=== PATIENT | female | born 1985 | race Caucasian/White ===

== ENCOUNTER 2018-07-18 18:35 | Emergency (ER) | payer MEDICAID ==
[~2018-07-18] VITALS: Ht 157.5 cm; Wt 65.8 kg
[2018-07-18 18:39] VITALS: Ht 157.5 cm; Wt 65.8 kg
[2018-07-18] MEDS ORDERED: KETOROLAC 60 MG INJ IM STA (21:03)
[2018-07-18] MEDS ORDERED: ONDANSETRON (ODT) 4 MG TAB ODT STA (21:03)
[2018-07-18] MEDS ORDERED: ACETAMINOPHEN 325 MG TAB PO ONE (21:30)
[2018-07-18] MEDS ORDERED: ONDA4TAB14 PO (22:17)
[2018-07-18] MEDS ORDERED: IBUP-1542 PO (22:17)
[2018-07-18] MEDS ORDERED: ACET500C5 PO (22:17)
[2018-07-18 22:24] VITALS: BP 112/70; PULSE 85; RESP 18
--- NOTE | 2018-07-19 02:18 | ERD ---
ER Documentation Chief Complaint Chief Complaint headache/chest pain/generalize body pain x 4 days HPI 33-year-old female patient with no significant past medical history presents to ED complaining of headache, body aches, sore throat and feels nausea that started about 9 AM this morning. Denies any vomiting, diarrhea, neck stiffness, chest pain, wheezing, abdominal pain, dysuria. Patient is eating appropriately, able to swallow liquids and solids without any difficulty. ROS All systems reviewed and are negative except as per history of present illness. Medications Home Meds Active Scripts Ondansetron (Ondansetron Odt) 4 Mg Tab.rapdis, 4 MG PO Q6H PRN for NAUSEA AND/OR VOMITING, #10 TAB Prov:LEO RIVERO PA-C 07/18/18 Acetaminophen* (Tylophen*) 500 Mg Capsule, 1 CAP PO Q6H PRN for PAIN AND OR ELEVATED TEMP, #20 CAP Prov:LEO RIVERO PA-C 07/18/18 Ibuprofen* (Motrin*) 600 Mg Tab, 600 MG PO Q6, #30 TAB Prov:LEO RIVERO PA-C 07/18/18 Allergies Allergies: Coded Allergies: No Known Allergy (Unverified , 07/18/18) PMhx/Soc Medical and Surgical Hx: pt denies Medical Hx History of Surgery: No (ectopic) Anesthesia Reaction: No Hx Neurological Disorder: No Hx Respiratory Disorders: No Hx Cardiac Disorders: No Hx Psychiatric Problems: No Hx Miscellaneous Medical Probl: No Hx Alcohol Use: No Hx Substance Use: No Hx Tobacco Use: No Smoking Status: Never smoker FmHx Family History: No diabetes, No coronary disease Physical Exam Vitals Vital Signs Date Temp Pulse Resp B/P (MAP) Pulse Ox O2 O2 Flow FiO2 Time Delivery Rate 07/18/18 98.6 85 18 112/70 100 Room Air 22:24 (84) 07/18/18 99.5 21:17 07/18/18 100.5 105 20 127/76 99 18:39 (93) Physical Exam Const: [id number], well-nourished. In no acute distress. Head: Atraumatic, normocephalic Eyes: Normal Conjunctiva without injection. No purulent discharge. ENT: Normal external ear, nose. Moist oropharynx without tonsillar exudates. Non-erythematous pharynx. Uvula midline. No drooling. No trismus. Neck: No cervical midline tenderness. Full range of motion. No meningismus. No cervical lymphadenopathy. No JVD. Resp: Clear to auscultation bilaterally. No wheezing, rhonchi, rales, or crackles. No accessory muscle use. No retractions. Cardio: Regular rate and rhythm. No murmurs, rubs or gallops. Abd: Soft, nontender, non distended. Normal bowel sounds. No palpable masses. No rebound tenderness. No guarding. Negative McBurney's point. Negative psoas sign. Negative obturator sign. : See exam in MDM. Skin: No petechiae or rashes Back: No midline tenderness. No CVA tenderness. Ext: No cyanosis, or edema. Neur: Awake and alert. Normal gait. Normal coordination. Psych: Normal Mood and Affect Results 24 hrs Laboratory Tests Test 07/18/18 21:11 07/18/18 21:15 Monoscreen Positive POC Beta HCG, Qualitative NEGATIVE Current Medications Medications Dose Sig/Francis Start Time Status Last (Trade) Ordered Route PRN Stop Time Admin Dose Reason Admin Ketorolac 60 mg ONCE STAT 07/18/18 DC 07/18/18 Tromethamine IM 21:03 07/18/18 21:25 (Toradol) 21:05 Ondansetron 4 mg ONCE STAT 07/18/18 DC 07/18/18 HCl (Zofran ODT 21:03 07/18/18 21:17 Odt) 21:05 650 mg ONCE ONCE 07/18/18 DC 07/18/18 Acetaminophen PO 21:30 07/18/18 21:17 (Tylenol 21:31 Tab) Procedures/MDM 33-year-old female patient with no significant past medical history presents to ED complaining of multiple complaints such as body aches, fever, sore throat. She has a low-grade fever 100.8. Tylenol, Toradol 60 mg here in the ED with his administered patient with improvement of her pain and downtrend of her temperature. Patient was also given Zofran here in the ED with improvement of her vomiting. Monospot, rapid strep test was ordered to further evaluate patient. Negative rapid strep. Positive Monospot. Symptomatic treatment recommended. Patient's physical exam include lungs which were clear to auscultation and a normal pulse oximetry. Bilateral ears pearly aceves. No tenderness to palpation of tragus or mastoid. Low suspicion for mastoiditis, otitis externa, otitis media. Patient is speaking in full sentences. There is a low suspicion for pneumonia, sinusitis, peritonsillar abscess, hands foot mouth disease, Kawasaki disease, Dami's angina, retropharyngeal abscess, meningitis, sepsis, acute abdomen or other emergent conditions. Diagnosis: Mononucleosis Discharge medications: Zofran, Tylenol, ibuprofen Follow up with primary care physician in 1-2 days. Instructed patient to return to the ED sooner for any worsening symptoms. Patient's questions were answered. Patient is hemodynamically stable. Patient understood and agreed with discharge plan. Patient discharged stable. Disclaimer: Inadvertent spelling and grammatical errors are likely due to EHR/dictation software use and do not reflect on the overall quality of patient care. Also, please note that the electronic time recorded on this note does not necessarily reflect the actual time of the patient encounter. Departure Diagnosis: Primary Impression: Mononucleosis Infectious mononucleosis etiology: unspecified organism Infectious mon onucleosis complication: without complication Qualified Codes: B27.90 - Infectious mononucleosis, unspecified without complication Condition: Stable Patient Instructions: Mononucleosis Referrals: [facility] YOU HAVE RECEIVED A MEDICAL SCREENING EXAM AND THE RESULTS INDICATE THAT YOU DO NOT HAVE A CONDITION THAT REQUIRES URGENT TREATMENT IN THE EMERGENCY DEPARTMENT. FURTHER EVALUATION AND TREATMENT OF YOUR CONDITION CAN WAIT UNTIL YOU ARE SEEN IN YOUR DOCTORS OFFICE WITHIN THE NEXT 1-2 DAYS. IT IS YOUR RESPONSIBILITY TO MAKE AN APPOINTMENT FOR FOLOW-UP CARE. IF YOU HAVE A PRIMARY DOCTOR --you should call your primary doctor and schedule an appointment IF YOU DO NOT HAVE A PRIMARY DOCTOR YOU CAN CALL OUR PHYSICIAN REFERRAL HOTLINE AT IF YOU CAN NOT AFFORD TO SEE A PHYSICIAN YOU CAN CHOSE FROM THE FOLLOWING [facility] [address] [facility] [address] [facility] [address] [facility] [address] [facility] [address] [facility]. [facility] [address] [facility]. [facility] YOU HAVE RECEIVED A MEDICAL SCREENING EXAM AND THE RESULTS INDICATE THAT YOU DO NOT HAVE A CONDITION THAT REQUIRES URGENT TREATMENT IN THE EMERGENCY DEPARTMENT. FURTHER EVALUATION AND TREATMENT OF YOUR CONDITION CAN WAIT UNTIL YOU ARE SEEN IN YOUR DOCTORS OFFICE WITHIN THE NEXT 1-2 DAYS. IT IS YOUR RESPONSIBILITY TO MAKE AN APPOINTMENT FOR FOLOW-UP CARE. IF YOU HAVE A PRIMARY DOCTOR --you should call your primary doctor and schedule and appointment IF YOU DO NOT HAVE A PRIMARY DOCTOR YOU CAN CALL OUR PHYSICIAN REFERRAL HOTLINE AT . IF YOU CAN NOT AFFORD TO SEE A PHYSICIAN YOU CAN CHOSE FROM THE FOLLOWING [facility] INSTITUTIONS: [facility] [address] [place] [address] [facility] [address] [place], [place] [id number] [place] [address] [address] [place] [address] [facility] URGENT CARE/SPECIALTIES Additional Instructions: Llame al doctor MAANA y arlet vinay WILFRID PARA DENTRO DE 2-3 MEDINA.Dgale a la secretaria que nosotros le instruimos hacer esta wilfrid.Avise o llame si heredia condicin se empeora antes de la wilfrid. Regresa aqui si peor o no mejor. LEO RIVERO PA-C Jul 19, 2018 02:18
== END 2018-07-18 22:26 | disposition home or self-care (01) ==
LOC: FTE 18:35
DX: B27.90 Infectious mononucleosis, unspecified without complication (principal)
CPT/HCPCS: 36415; 81025; 86308; 87880; 96372; J1885; Z7502; Z7610